=== PATIENT | male | born 1945 | race Caucasian/White ===

== ENCOUNTER 2016-07-18 08:16 | Outpatient (CLI) | payer MEDICARE | END 2016-07-18 08:17 | disposition home or self-care (01) | DX: E78.5 Hyperlipidemia, unspecified (principal); R73.09 Other abnormal glucose; R94.5 Abnormal results of liver function studies; C61 Malignant neoplasm of prostate ==

== ENCOUNTER 2016-08-05 08:28 | Emergency (ER) | payer MEDICARE | END 2016-08-05 09:37 | disposition home or self-care (01) | DX: L02.413 Cutaneous abscess of right upper limb (principal); R03.0 Elevated blood-pressure reading, without diagnosis of hypertension ==

== ENCOUNTER 2017-01-10 08:00 | Outpatient (CLI) | payer MEDICARE ==
[2017-01-10 19:38] LABS: BASOPHILS % (AUTO) 0.8 %; EOSINOPHILS # (AUTO) 0.1 10^3/uL (0.0-0.7); EOSINOPHILS % (AUTO) 2.5 %; HCT - HEMATOCRIT 44.7 % (42.0-52.0); HGB - HEMOGLOBIN 15.1 g/dL (14.0-18.0); LYMPHOCYTES # (AUTO) 2.4 10^3/uL (1.5-3.5); LYMPHOCYTES % (AUTO) 41.4 %; MEAN CORPUSCULAR HEMOGLOBIN 32.4 pg (27.0-31.0); MEAN CORPUSCULAR HGB CONC 33.9 g/dL (32.0-36.0); MEAN CORPUSCULAR VOLUME 95.7 fL (80.0-94.0); MEAN PLATELET VOLUME 10.5 fL (7.4-11.4); MONOCYTES # (AUTO) 0.3 10^3/uL (0.0-1.0); MONOCYTES % (AUTO) 5.6 %; NEUTROPHILS # (AUTO) 2.9 10^3/uL (1.5-6.6); NEUTROPHILS % (AUTO) 49.7 %; NUCLEATED RED BLOOD CELLS AUTO 0.1 /100WBC; RED BLOOD COUNT 4.67 10^6/uL (4.70-6.10); UNCORRECTED WHITE BLOOD COUNT 5.8 x10^3/uL; WHITE BLOOD COUNT 5.8 x10^3/uL (4.8-10.8)
[2017-01-10 19:54] LABS: ALBUMIN/GLOBULIN RATIO 1.2 (1.0-2.2); BILIRUBIN,TOTAL 1.6 mg/dL (0.2-1.0); BUN - BLOOD UREA NITROGEN 17 mg/dL (6-20); CALCIUM 9.5 mg/dL (8.5-10.3); CARBON DIOXIDE - CO2 25 mmol/L (21-32); CHLORIDE 101 mmol/L (101-111); CHOL/HDL RATIO 4.6 (<5.0); CHOLESTEROL 207 mg/dL; CREATININE 0.9 mg/dL (0.6-1.2); GFR - MDRD 84 (>89); GLUCOSE 110 mg/dL (70-100); HDL CHOLESTEROL 45 mg/dL; POTASSIUM 3.9 mmol/L (3.5-5.0); SODIUM 136 mmol/L (135-145); TOTAL PROTEIN 8.3 g/dL (6.7-8.2); TRIGLYCERIDES 131 mg/dL; VLDL CHOLESTEROL 26 mg/dL
[2017-01-10 20:07] LABS: HEMOGLOBIN A1C 0.63 g/dL
== END 2017-01-10 08:01 | disposition home or self-care (01) ==
LOC: LAB.R 08:00
PROVIDERS: ATTEND Physician Assistant Medical
DX: Z85.46 Personal history of malignant neoplasm of prostate (principal); R73.9 Hyperglycemia, unspecified; Z79.899 Other long term (current) drug therapy; I10 Essential (primary) hypertension; G47.33 Obstructive sleep apnea (adult) (pediatric); E78.2 Mixed hyperlipidemia; Z11.59 Encounter for screening for other viral diseases
CPT/HCPCS: 80053; 80061; 83036; 84153; 84443; 85025; 86803

== ENCOUNTER 2017-05-16 15:26 | Outpatient (CLI) | payer MEDICARE | END 2017-05-16 15:27 | disposition home or self-care (01) | LOC: LAB 15:26 | PROVIDERS: ATTEND Urology | DX: R39.15 Urgency of urination (principal); Z85.46 Personal history of malignant neoplasm of prostate; Z90.79 Acquired absence of other genital organ(s) | CPT/HCPCS: 36415; 84153 ==

== ENCOUNTER 2017-09-16 10:28 | Outpatient (CLI) | payer MEDICARE | END 2017-09-16 10:29 | disposition home or self-care (01) | LOC: LAB 10:28 | PROVIDERS: ATTEND Urology | DX: Z85.46 Personal history of malignant neoplasm of prostate (principal) | CPT/HCPCS: 36415; 84153 ==

== ENCOUNTER 2018-01-08 08:08 | Outpatient (CLI) | payer MEDICARE ==
[2018-01-08 13:29] LABS: BASOPHILS # (AUTO) 0.1 10^3/uL (0.0-0.1); BASOPHILS % (AUTO) 1.4 %; EOSINOPHILS # (AUTO) 0.2 10^3/uL (0.0-0.7); EOSINOPHILS % (AUTO) 3.2 %; HGB - HEMOGLOBIN 14.5 g/dL (14.0-18.0); LYMPHOCYTES % (AUTO) 35.7 %; MEAN CORPUSCULAR HEMOGLOBIN 32.7 pg (27.0-31.0); MEAN CORPUSCULAR HGB CONC 34.5 g/dL (32.0-36.0); MEAN CORPUSCULAR VOLUME 94.8 fL (80.0-94.0); MEAN PLATELET VOLUME 10.2 fL (7.4-11.4); MONOCYTES # (AUTO) 0.3 10^3/uL (0.0-1.0); MONOCYTES % (AUTO) 6.1 %; NEUTROPHILS # (AUTO) 3.1 10^3/uL (1.5-6.6); NEUTROPHILS % (AUTO) 53.6 %; PLT - PLATELET COUNT 181 10^3/uL (130-450); RED BLOOD COUNT 4.43 10^6/uL (4.70-6.10); RED CELL DISTRIBUTION WIDTH 13.4 % (12.0-15.0); WHITE BLOOD COUNT 5.7 x10^3/uL (4.8-10.8)
[2018-01-08 13:43] LABS: ALBUMIN 4.3 g/dL (3.2-5.5); ALBUMIN/GLOBULIN RATIO 1.2 (1.0-2.2); ALKALINE PHOSPHATASE 34 IU/L (42-121); ALT ALANINE AMINOTRANSFERASE 36 IU/L (10-60); AST ASPARTATE AMINOTRANSFERASE 27 IU/L (10-42); BILIRUBIN,TOTAL 1.2 mg/dL (0.2-1.0); BUN - BLOOD UREA NITROGEN 15 mg/dL (6-20); CALCIUM 9.3 mg/dL (8.5-10.3); CARBON DIOXIDE - CO2 26 mmol/L (21-32); CHLORIDE 105 mmol/L (101-111); CHOL/HDL RATIO 5.1 (<5.0); CHOLESTEROL 198 mg/dL; CREATININE 0.9 mg/dL (0.6-1.2); GFR - MDRD 83 (>89); GLUCOSE 114 mg/dL (70-100); HDL CHOLESTEROL 39 mg/dL; LDL CHOLESTEROL,CALCULATED 136 mg/dL; LDL/HDL RATIO 3.5 (<3.6); SODIUM 138 mmol/L (135-145); TOTAL PROTEIN 7.8 g/dL (6.7-8.2); VLDL CHOLESTEROL 23 mg/dL
[2018-01-08 13:55] LABS: HB2 TOTAL 15.5 g/dL; HEMOGLOBIN A1C 0.67 g/dL; HEMOGLOBIN A1C % 6.1 % (4.6-6.2)
== END 2018-01-08 08:09 | disposition home or self-care (01) ==
LOC: LAB.R 08:08
PROVIDERS: ATTEND Physician Assistant Medical
DX: R73.9 Hyperglycemia, unspecified (principal); E78.2 Mixed hyperlipidemia; I10 Essential (primary) hypertension; Z85.46 Personal history of malignant neoplasm of prostate; Z79.899 Other long term (current) drug therapy; Z12.5 Encounter for screening for malignant neoplasm of prostate
CPT/HCPCS: 80053; 80061; 83036; 85025; G0103; 83721; 84153

== ENCOUNTER 2018-03-04 10:41 | Outpatient (CLI) | payer MEDICARE | END 2018-03-04 10:42 | disposition home or self-care (01) | LOC: SC 10:41 | PROVIDERS: ATTEND Nurse Practitioner Family | DX: G47.33 Obstructive sleep apnea (adult) (pediatric) (principal); R53.83 Other fatigue | CPT/HCPCS: 99214; G0463; 99212 ==

== ENCOUNTER 2018-04-23 12:14 | Outpatient (CLI) | payer MEDICARE | END 2018-04-23 12:15 | disposition home or self-care (01) | LOC: LAB 12:14 | PROVIDERS: ATTEND Urology | DX: Z85.46 Personal history of malignant neoplasm of prostate (principal) | CPT/HCPCS: 36415; 84153 ==

== ENCOUNTER 2018-04-28 08:10 | Outpatient (CLI) | payer MEDICARE ==
[2018-04-28 16:51] LABS: CHOL/HDL RATIO 6.3 (<5.0); CHOLESTEROL 222 mg/dL; HDL CHOLESTEROL 35 mg/dL; LDL CHOLESTEROL,CALCULATED 151 mg/dL; LDL/HDL RATIO 4.3 (<3.6); VLDL CHOLESTEROL 36 mg/dL
== END 2018-04-28 08:11 | disposition home or self-care (01) ==
LOC: LAB.R 08:10
PROVIDERS: ATTEND Physician Assistant Medical
DX: Z79.899 Other long term (current) drug therapy (principal); E78.2 Mixed hyperlipidemia
CPT/HCPCS: 80061; 83721

== ENCOUNTER 2018-06-19 08:00 | Outpatient (CLI) | payer MEDICARE ==
[2018-06-19 14:02] LABS: ALT ALANINE AMINOTRANSFERASE 44 IU/L (10-60); AST ASPARTATE AMINOTRANSFERASE 31 IU/L (10-42); LDL CHOLESTEROL,DIRECT 55 mg/dL
== END 2018-06-19 23:59 | disposition home or self-care (01) ==
LOC: LAB.R 08:00
PROVIDERS: ATTEND Physician Assistant Medical
DX: E78.2 Mixed hyperlipidemia (principal); Z79.899 Other long term (current) drug therapy
CPT/HCPCS: 83721; 84450; 84460

== ENCOUNTER 2018-11-05 11:03 | Outpatient (CLI) | payer MEDICARE | END 2018-11-05 11:04 | disposition home or self-care (01) | LOC: LAB 11:03 | PROVIDERS: ATTEND Urology | DX: Z85.46 Personal history of malignant neoplasm of prostate (principal) | CPT/HCPCS: 36415; 84153 ==

== ENCOUNTER 2019-01-19 09:03 | Outpatient (CLI) | payer MEDICARE ==
[2019-01-19 09:46] LABS: BASOPHILS # (AUTO) 0.1 10^3/uL (0.0-0.1); BASOPHILS % (AUTO) 0.8 %; EOSINOPHILS # (AUTO) 0.2 10^3/uL (0.0-0.7); EOSINOPHILS % (AUTO) 2.8 %; HGB - HEMOGLOBIN 14.2 g/dL (14.0-18.0); LYMPHOCYTES # (AUTO) 1.9 10^3/uL (1.5-3.5); LYMPHOCYTES % (AUTO) 31.6 %; MEAN CORPUSCULAR HEMOGLOBIN 32.1 pg (27.0-31.0); MEAN CORPUSCULAR HGB CONC 33.3 g/dL (32.0-36.0); MEAN CORPUSCULAR VOLUME 96.4 fL (80.0-94.0); MEAN PLATELET VOLUME 11.1 fL (7.4-11.4); MONOCYTES # (AUTO) 0.5 10^3/uL (0.0-1.0); MONOCYTES % (AUTO) 7.9 %; NEUTROPHILS # (AUTO) 3.4 10^3/uL (1.5-6.6); NEUTROPHILS % (AUTO) 56.6 %; PLT - PLATELET COUNT 193 10^3/uL (130-450); RED BLOOD COUNT 4.43 10^6/uL (4.70-6.10); WHITE BLOOD COUNT 6.1 x10^3/uL (4.8-10.8)
[2019-01-19 10:06] LABS: ALBUMIN 4.4 g/dL (3.2-5.5); ALKALINE PHOSPHATASE 68 IU/L (42-121); ALT ALANINE AMINOTRANSFERASE 37 IU/L (10-60); AST ASPARTATE AMINOTRANSFERASE 42 IU/L (10-42); BILIRUBIN,TOTAL 1.8 mg/dL (0.2-1.0); BUN - BLOOD UREA NITROGEN 17 mg/dL (6-20); CALCIUM 9.2 mg/dL (8.5-10.3); CARBON DIOXIDE - CO2 26 mmol/L (21-32); CHLORIDE 103 mmol/L (101-111); CHOLESTEROL 108 mg/dL; CREATININE 0.9 mg/dL (0.6-1.2); GFR - MDRD 83 (>89); GLUCOSE 120 mg/dL (70-100); HDL CHOLESTEROL 36 mg/dL; LDL CHOLESTEROL,CALCULATED 57 mg/dL; LDL/HDL RATIO 1.6 (<3.6); SODIUM 137 mmol/L (135-145); TOTAL PROTEIN 8.7 g/dL (6.7-8.2); VLDL CHOLESTEROL 15 mg/dL
== END 2019-01-19 09:04 | disposition home or self-care (01) ==
LOC: LAB 09:03
PROVIDERS: ATTEND Family Medicine
DX: E78.2 Mixed hyperlipidemia (principal); Z12.5 Encounter for screening for malignant neoplasm of prostate
CPT/HCPCS: 36415; 80053; 80061; 85025; G0103; 83721; 84153

== ENCOUNTER 2019-06-01 11:15 | Outpatient (CLI) | payer MEDICARE ==
[2019-06-01 12:27] VITALS: BP 120/70
--- NOTE | 2019-06-01 12:27 | SLEEP CARE CONSULTATION ---
Information from patient questionnaire entered by Mishel Gomes. I have reviewed and concur with the information entered by Mishel Gomes. This document represents the service I personally performed and the decisions made by me, Mihaela Hager, RN, MSN, [employer]ER OPERATOR. History of Present Illness Previous diagnosis: Moderate, Obstructive Sleep Apnea-Hypopnea Syndrome AHI: 22.3 Reason for follow up: annual Equipment type: CPAP Equipment obtained from: [employer] (lost contact number) Mask style: Nasal (Dreamwear) Mask brand: Respironics Backup mask available: Yes (old mask ) Last cushion change: 3 months ago Prior sleep studies: Yes Year and Where: 2010 [facility] CPAP Compliance Data - Data Reviewed with Patient Average duration of nightly device use: 7h 59m Compliance rate %: 99 Current pressure setting (cmH2O): 7-9 Humidity setting: auto Heated hose setting: auto Central apnea: 0.7 Average large leak: 0 Subjective Missed days of use due to: reports: travel (forgot his CPAP) Patient concerns: reports: mask discomfort (dislodging in sleep 1-2 times a night), mask leak noise, other (general seal problems and whistling / ). denies: aerophagia, air blowing in eyes, condensation in mask/hose, nasal congestion, dry mouth, nose, throat, epistaxis Observed to snore while using device: Yes (when supine) Current pressure setting perceived as: comfortable On therapy, patient: reports: sleeping better, awakening more refreshed, being more awake and alert during the day, more rested overall. denies: drowsiness while driving Initial Blanchard Sleepiness Scale score: 5 Current Blanchard Sleepiness Scale score: 9 Allergies and Home Medications Home medication list reviewed: Yes (no change in medication) Allergy and home medication list: Gabapentin 300mg one 2-4 times daily Vitamin D3 5000 units daily Review of Systems Review of systems same as previous: No (skin cancer new to nose to be removed. ) Physical Exam Blood Pressure: 120/70 Cuff size: long Heart Rate: 65 O2 Saturation: 97 Height: 6 ft 3 in Weight: 263 lb 6.4 oz Weight change since last visit: lost 1 pounds Body Mass Index: 32.9 BMI Classification: Obesity Class 1 Impression and Plan 1. Obstructive Sleep Apnea-Hypopnea Syndrome, moderate, with good treatment compliance and good apnea control. On CPAP therapy, the patient has better sleep quality and is more rested overall. To reduce air hunger while sleeping supine, I will increase his autoCPAP to [id number]. He is to contact me if the pressure is insufficient or uncomfortable. To prevent mask dislodging , an adaptor will be ordered for headgear. To reduce warmth of air, I showed patient how to adjust the heated hose and humidity as well if needed. Printed instructions given with rossye written for changing settings. Mask leaks can be reduced by washing mask daily and changing mask cushions more frequently to improve mask seal and comfort. Cushions also need to be changed more frequently for better seal as it will lose form with use. Additionally, mask whistling can be reduced by changing body of mask every 3 months. Supply replacement list also given as well as reference sheet for cleaning. Patient has lost weight. Currently patients BMI is 32.5 obesity class . Obesity increases the risk of apnea, CPAP pressure req uirements and overall health risks especially cardiovascular and diabetes. Thus patient is advised to lose weight. However, patient is not currently interested. Weight loss can be done with reducing portion size, refined foods and balancing content with vegetables, fruit and protein. A diet consultation can be helpful in achieving optimal weight loss goals. The BMI chart was reviewed. Patient enc ouraged to discuss their weight goals with their PCP. Patient's apnea severity and rationale for treatment to reduce apnea, improve sleep quality and reduce cardiovascular and cerebrovascular events was reviewed. Since his apnea is more severe supine, he is advised to avoid supine sleep if unable to use CPAP. * * Change CPAP pressure to 9-11 cmH2O * headgear adaptor * update supplies * Implement methods to reduce air warmth and mask leaks * Notify me if snoring with mask or feeling that the pressure is too much or too little * Attempt to lose weight * Call this office if any problems using CPAP * Return for follow up in 1 year , or sooner if concerns arise I spent 100% of this visit face to face with the patient with greater than 50% of this was spent time counseling the patient and coordination of care.
== END 2019-06-01 11:16 | disposition home or self-care (01) ==
LOC: SC 11:15
PROVIDERS: ATTEND Nurse Practitioner Family
DX: G47.33 Obstructive sleep apnea (adult) (pediatric) (principal); E66.9 Obesity, unspecified; Z68.32 Body mass index [BMI] 32.0-32.9, adult
CPT/HCPCS: 99214; G0463; 99212

== ENCOUNTER 2020-01-21 08:11 | Outpatient (CLI) | payer MEDICARE ==
[2020-01-21 08:29] LABS: BASOPHILS # (AUTO) 0.1 10^3/uL (0.0-0.1); EOSINOPHILS # (AUTO) 0.1 10^3/uL (0.0-0.7); HGB - HEMOGLOBIN 14.5 g/dL (14.0-18.0); LYMPHOCYTES # (AUTO) 2.1 10^3/uL (1.5-3.5); LYMPHOCYTES % (AUTO) 34.7 %; MEAN CORPUSCULAR HEMOGLOBIN 31.9 pg (27.0-31.0); MEAN CORPUSCULAR HGB CONC 33.1 g/dL (32.0-36.0); MEAN CORPUSCULAR VOLUME 96.3 fL (80.0-94.0); MEAN PLATELET VOLUME 10.6 fL (7.4-11.4); MONOCYTES # (AUTO) 0.5 10^3/uL (0.0-1.0); NEUTROPHILS # (AUTO) 3.3 10^3/uL (1.5-6.6); PLT - PLATELET COUNT 185 10^3/uL (130-450); RED BLOOD COUNT 4.55 10^6/uL (4.70-6.10); RED CELL DISTRIBUTION WIDTH 12.6 % (12.0-15.0); WHITE BLOOD COUNT 6.1 x10^3/uL (4.8-10.8)
[2020-01-21 09:07] LABS: ALBUMIN 4.5 g/dL (3.2-5.5); ALBUMIN/GLOBULIN RATIO 1.2 (1.0-2.2); ALKALINE PHOSPHATASE 50 IU/L (42-121); ALT ALANINE AMINOTRANSFERASE 37 IU/L (10-60); AST ASPARTATE AMINOTRANSFERASE 32 IU/L (10-42); BILIRUBIN,TOTAL 2.6 mg/dL (0.2-1.0); BUN - BLOOD UREA NITROGEN 16 mg/dL (6-20); CALCIUM 9.5 mg/dL (8.5-10.3); CARBON DIOXIDE - CO2 26 mmol/L (21-32); CHLORIDE 100 mmol/L (101-111); CHOL/HDL RATIO 3.5 (<5.0); CHOLESTEROL 130 mg/dL; GLUCOSE 123 mg/dL (70-100); HDL CHOLESTEROL 37 mg/dL; LDL CHOLESTEROL,CALCULATED 72 mg/dL; LDL/HDL RATIO 1.9 (<3.6); SODIUM 138 mmol/L (135-145); TOTAL PROTEIN 8.3 g/dL (6.7-8.2); VLDL CHOLESTEROL 21 mg/dL
[2020-01-21 14:57] LABS: PSA FREE < 0.005 ng/mL (0.16-2.81)
== END 2020-01-21 08:12 | disposition home or self-care (01) ==
LOC: LAB 08:11
PROVIDERS: ATTEND Family Medicine
DX: E78.5 Hyperlipidemia, unspecified (principal); Z85.46 Personal history of malignant neoplasm of prostate
CPT/HCPCS: 36415; 80053; 80061; 83721; 84153; 84154; 85025

== ENCOUNTER 2020-01-27 08:00 | Outpatient (CLI) | payer MEDICARE ==
[2020-01-27 18:53] LABS: INR 1.2 (0.8-1.2)
[2020-01-27 19:11] LABS: PARTIAL THROMBOPLASTIN TIME 26.5 secs (24.9-33.3)
[2020-01-28 11:53] LABS: BILIRUBIN,DIRECT 0.3 mg/dL (0.1-0.5); BILIRUBIN,TOTAL 2.3 mg/dL (0.2-1.0)
[2020-01-28 13:11] LABS: HEPATITIS B SURFACE ANTIGEN NON-REACTIVE (NON-REACTIVE); HEPATITIS C ANTIBODY NON-REACTIVE (NON-REACTIVE)
== END 2020-01-27 23:59 | disposition home or self-care (01) ==
LOC: LAB.WCP 08:00
PROVIDERS: ATTEND Family Medicine
DX: E80.6 Other disorders of bilirubin metabolism (principal)
CPT/HCPCS: 36415; 82247; 82248; 85610; 85730; 86317; 86704; 86803; 87340

== ENCOUNTER 2020-03-11 10:19 | Emergency (ER) | payer MEDICARE ==
--- NOTE | 2020-03-11 11:32 | ED Physician Documentation ---
PD HPI URI - Stated complaint Stated Complaint: FEVER - Chief complaint Chief Complaint: Fever - History obtained from History obtained from: Patient - History of Present Illness Timing - onset: How many days ago (has had lump in left posterior axilla for few weeks and noted it getting larger. More painful and swollen the past few days. Seen by [employer] yesterday and had punch biopsy of it. Having more pain today. Fevers last night without cough nor URI symptoms.) Timing details: Gradual onset, Still present (worse for several days) Associated symptoms: Fever (last night and today), Other (skin lesion left posterior axilla only). No: Sore throat, Dry cough, Productive cough, NVD Similar symptoms before: Has not had sx before Recently seen: Clinic ([employer] yesterday) Review of Systems Constitutional: reports: Fever, Chills Nose: denies: Rhinorrhea / runny nose, Congestion Throat: denies: Sore throat Respiratory: denies: Cough GI: denies: Nausea, Vomiting, Diarrhea : denies: Dysuria PD PAST MEDICAL HISTORY - Past Medical History Past Medical History: Yes Cardiovascular: None Respiratory: CPAP use Endocrine/Autoimmune: None GI: None : None HEENT: None Psych: None Musculoskeletal: None Derm: Other - Past Surgical History Past Surgical History: No General: Hiatal hernia repair HEENT: Cataracts - Present Medications Home Medications: Ambulatory Orders Medication Instructions Recorded Confirmed Gabapentin [Neurontin] 300 mg PO TID 02/14/16 02/14/16 Sulfamethoxazole/Trimethoprim 1 each PO BID #14 tablet 08/05/16 [Sulfamethoxazole-Tmp Ds Tablet] Mupirocin Calcium [Mupirocin] 1 applic TP TID #15 cream..g. 03/11/20 Sulfamethox/Trimeth 800/160 1 each PO BID #14 tablet 03/11/20 [Bactrim Ds 800/160] - Allergies Allergies/Adverse Reactions: Allergies Allergy/AdvReac Type Severity Reaction Status Date / Time No Known Drug Allergies Allergy Verified 03/11/20 10:35 - Social History Does the pt smoke?: No Smoking Status: Never smoker Does the pt drink ETOH?: No Does the pt have substance abuse?: No - Immunizations Immunizations are current?: Yes - POLST Patient has POLST: No PD ED PE NORMAL - Vitals Vital signs reviewed: Yes - General General: Alert and oriented X 3, No acute distress, Well developed/nourished - HEENT HEENT: Ears normal, Moist mucous membranes, Pharynx benign - Neck Neck: Supple, no meningeal sign, No adenopathy - Cardiac Cardiac: RRR, No murmur - Respiratory Respiratory: Clear bilaterally - Abdomen Abdomen: Soft, Non tender - Back Back: No CVA TTP - Derm Derm: Normal color, Warm and dry, Other (left posterior axillary area with firm rounded area under skin without skin lesions per se. It is about 4-5 cm di ameter, with some redness and warmth of skin overlying. There is small 1 cm sutured skin laceration from recent biopsy at edge of firm area. There is tenting of the skin adjacent to that.) Results - Vitals Vitals: Oxygen O2 Source Room air - Labs Labs: Microbiology 03/11/20 12:13 Wound Culture - Preliminary Arm - Left Procedures - Abscess I&D (location) left axilla posteriorly Preparation: Confirmed with ultrasound, Chlorhexadine, Lidocaine 1%, With epi Incision: Incised with scalpel, Purulent drainage, Loculations broken, Irrigated, Packed, Culture obtained Other: Pt tolerated well, Dressing applied, Antibiotic prescribed PD MEDICAL DECISION MAKING - ED course Complexity details: considered differential (generous amount of purulent drainage with I&D and deflated much of the firm area. Still much induration around it, likely was sebaceous cyst that grew and got infected. Interesting the punch biopsy or such from Derm just missed the cavity of the abscess.), d/w patient Departure - Departure Disposition: 01 Home, Self Care Clinical Impression: Abscess of arm, left Condition: Stable Record reviewed to determine appropriate education?: Yes Instructions: ED Abscess IandD Follow-Up: Bubba Klein MD [Primary Care Provider] - Prescriptions: Sulfamethox/Trimeth 800/160 [Bactrim Ds 800/160] 1 each PO BID #14 tablet Mupirocin Calcium [Mupirocin] 1 applic TP TID #15 cream..g. Comments: Warm moist compresses or soaks to the area periodically to promote blood flow and increased drainage. Leave the packing/wick in there for 1 or 2 days. Eit her remove yourself or follow-up back with us in 2 days. Bactrim antibiotic twice daily for a week for presumed staph infection. The culture will result in 2 days to better confirm and see if we need to change antibiotics. Tylenol or ibuprofen as needed for pains. Should be feeling better with the pressure out with the drainage. Mupirocin topical antibiotic to the area twice daily. Dressing changed twice daily initially to clear out any drainage. Recheck if not improving well over the next couple of days and sooner if you have worsening general wellness, for fevers persisting, nausea, increased redness or other concerns. Follow up with Dermatology after your return for more definitive care/excision of the underlying cyst or such. Discharge Date/Time: 03/11/20 12:38
[2020-03-11] MEDS ORDERED: SULFAMETH/TRIMETH DS 800/160 MG TABLET PO STA (12:14)
[2020-03-11 12:39] VITALS: BP 110/69
== END 2020-03-11 12:38 | disposition home or self-care (01) ==
LOC: ED 10:19
DX: L02.412 Cutaneous abscess of left axilla (principal)
CPT/HCPCS: 10061; 87070; 87205; 99283; 99284; A9270

== ENCOUNTER 2020-03-13 13:23 | Emergency (ER) | payer MEDICARE ==
[2020-03-13] MEDS ORDERED: BUFFERED LIDOCAINE 10 ML SYRINGE SUBQ STA (13:38)
--- NOTE | 2020-03-13 13:38 | ED Physician Documentation ---
History of Present Illness - Stated complaint Stated Complaint: DRAIN REMOVAL - Chief complaint Chief Complaint: General - History obtained from History obtained from: Patient - Additonal information Additional information: 74-year-old gentleman returns as directed for packing removal. 2 days ago he had a sebaceous cyst incised and drained, its basically on the back of the left arm. Culture grew what looks like probably skin dakota. Review of Systems Ten Systems: 10 systems reviewed and negative Constitutional: reports: Reviewed and negative Nose: reports: Reviewed and negative Throat: reports: Reviewed and negative Cardiac: reports: Reviewed and negative Respiratory: reports: Reviewed and negative PD PAST MEDICAL HISTORY - Past Medical History Cardiovascular: None Respiratory: CPAP use Endocrine/Autoimmune: None GI: None : None HEENT: None Psych: None Musculoskeletal: None Derm: Other - Past Surgical History Past Surgical History: No General: Hiatal hernia repair HEENT: Cataracts - Present Medications Home Medications: Ambulatory Orders Medication Instructions Recorded Confirmed Gabapentin [Neurontin] 300 mg PO TID 02/14/16 02/14/16 Sulfamethoxazole/Trimethoprim 1 each PO BID #14 tablet 08/05/16 [Sulfamethoxazole-Tmp Ds Tablet] Mupirocin Calcium [Mupirocin] 1 applic TP TID #15 cream..g. 03/11/20 Sulfamethox/Trimeth 800/160 1 each PO BID #14 tablet 03/11/20 [Bactrim Ds 800/160] - Allergies Allergies/Adverse Reactions: Allergies Allergy/AdvReac Type Severity Reaction Status Date / Time No Known Drug Allergies Allergy Verified 03/13/20 13:33 - Social History Does the pt smoke?: No Smoking Status: Never smoker Does the pt drink ETOH?: No Does the pt have substance abuse?: No - Immunizations Immunizations are current?: Yes - POLST Patient has POLST: No PD ED PE NORMAL - Vitals Vital signs reviewed: Yes - General General: Alert and oriented X 3, No acute distress - Extremities Extremities: Other (He has a sebaceous cyst measuring about 4 cm in diameter with quarter inch packing in place and a stab incision. On removal of the packing there is still significant fluctuance and drainage.) - Neuro Neuro: Alert and oriented X 3, Normal speech Results - Vitals Vitals: Vital Signs - 24 hr 03/13/20 13:28 Temperature 36.9 C Heart Rate 66 Respiratory 18 Rate Blood Pressure 132/71 H O2 Saturation 100 Oxygen O2 Source Room air Procedures - Abscess I&D (location) L shoulder Preparation: Chlorhexadine, Lidocaine 1% Incision: Incised with scalpel, Purulent drainage, Loculations broken, Packed. No: Culture obtained Other: Pt tolerated well PD MEDICAL DECISION MAKING - ED course ED course: 74-year-old gentleman with incompletely drained sebaceous cyst, repeat I&D was done and got out a significant amount of purulent and sebaceous material and it was repacked with quarter inch packing Departure - Departure Disposition: 01 Home, Self Care Clinical Impression: Sebaceous cyst of left axilla Condition: Good Record reviewed to determine appropriate education?: Yes Instructions: ED Cyst Sebaceous Infec IandD Comments: Continue current antibiotics, return in 2 days or see your exhibitor sales in 2 days for recheck and packing removal. Sooner if worse.
[2020-03-13 14:15] VITALS: BP 106/72
== END 2020-03-13 14:26 | disposition home or self-care (01) ==
LOC: ED 13:23
DX: L72.3 Sebaceous cyst (principal)
CPT/HCPCS: 10061

== ENCOUNTER 2020-03-15 13:40 | Emergency (ER) | payer MEDICARE ==
--- NOTE | 2020-03-15 13:44 | ED Physician Documentation ---
PD HPI WOUND RECHECK - Stated complaint Stated Complaint: LT/ARM/ABCESS FU - Histroy obtained from History obtained from: Patient - History of Present Illness Location: Left Uppper Extremity (posterior axillary area.) Recently seen: Emergency Dept (3 days ago and 2 days ago, for I&D and then repacking of abscess. Culture showing mixed skin dakota though wound draining demetri purulent material. He states improving on the abx and with drainage.) Review of Systems Constitutional: denies: Fever, Chills, Myalgias GI: denies: Nausea, Vomiting Neurologic: denies: Focal weakness, Numbness PD PAST MEDICAL HISTORY - Past Medical History Cardiovascular: None Respiratory: CPAP use Endocrine/Autoimmune: None GI: None : None HEENT: None Psych: None Musculoskeletal: None Derm: Other - Past Surgical History Past Surgical History: No General: Hiatal hernia repair HEENT: Cataracts - Present Medications Home Medications: Ambulatory Orders Medication Instructions Recorded Confirmed Gabapentin [Neurontin] 300 mg PO TID 02/14/16 02/14/16 Sulfamethoxazole/Trimethoprim 1 each PO BID #14 tablet 08/05/16 [Sulfamethoxazole-Tmp Ds Tablet] Mupirocin Calcium [Mupirocin] 1 applic TP TID #15 cream..g. 03/11/20 Sulfamethox/Trimeth 800/160 1 each PO BID #14 tablet 03/11/20 [Bactrim Ds 800/160] - Allergies Allergies/Adverse Reactions: Allergies Allergy/AdvReac Type Severity Reaction Status Date / Time No Known Drug Allergies Allergy Verified 03/15/20 13:45 - Social History Does the pt smoke?: No Smoking Status: Never smoker Does the pt drink ETOH?: No Does the pt have substance abuse?: No - Immunizations Immunizations are current?: Yes - POLST Patient has POLST: No PD ED PE NORMAL - Vitals Vital signs reviewed: Yes - General General: Alert and oriented X 3, No acute distress, Well developed/nourished - Derm Derm: Normal color, Warm and dry - Extremities Extremities: Other (left posterior axillary area with area of firmness and mild redness, much decreased in size from original I&D. Packing in place which is purulent. Removed easily and the cavity had then minimal residual drainage (couple drops purulent). I think it can go without repacking. ) Results - Vitals Vitals: Vital Signs - 24 hr 03/15/20 13:45 Temperature 36.5 C Heart Rate 60 Respiratory 16 Rate Blood Pressure 152/89 H O2 Saturation 97 Oxygen O2 Source Room air PD MEDICAL DECISION MAKING - ED course Complexity details: reviewed old records, reviewed results, considered differential, d/w patient Departure - Departure Disposition: 01 Home, Self Care Clinical Impression: Encounter for recheck of abscess following incision and drainage Condition: Stable Follow-Up: Bubba Klein MD [Primary Care Provider] - Comments: Continue with warm compresses or soaks to the area once or twice daily. Finish out your antibiotics. Recheck if not looking well at the end of your antibiotic s with any persistent redness or drainage. Discharge Date/Time: 03/15/20 14:07
[2020-03-15 13:49] VITALS: BP 152/89
== END 2020-03-15 14:07 | disposition home or self-care (01) ==
LOC: ED 13:40
DX: L02.412 Cutaneous abscess of left axilla (principal)
CPT/HCPCS: 99281

== ENCOUNTER 2020-04-05 15:00 | Outpatient (CLI) | payer MEDICARE | END 2020-04-05 23:59 | disposition home or self-care (01) | LOC: LAB.R 15:00 | PROVIDERS: ATTEND Physician Assistant Medical | DX: L02.91 Cutaneous abscess, unspecified (principal) | CPT/HCPCS: 87070; 87205 ==

== ENCOUNTER 2020-04-07 11:40 | Outpatient (CLI) | payer MEDICARE | END 2020-04-07 23:59 | disposition home or self-care (01) | LOC: LAB.R 11:40 | PROVIDERS: ATTEND Physician Assistant Medical | DX: R19.7 Diarrhea, unspecified (principal) | CPT/HCPCS: 87493 ==

== ENCOUNTER 2020-06-02 15:43 | Outpatient (CLI) | payer MEDICARE ==
--- NOTE | 2020-06-02 16:16 | SLEEP CARE CONSULTATION ---
Information from patient questionnaire entered by Ivet Phan. I have reviewed and concur with the information entered by Ivet Phan. This document represents the service I personally performed and the decisions made by me, Cristal Fitzgerald ARNP. History of Present Illness Service Date and Time: 06/02/2020 1543 Previous diagnosis: Moderate, Obstructive Sleep Apnea-Hypopnea Syndrome AHI: 22.3 Reason for follow up: annual (Last seen 05/2019) Equipment type: CPAP Equipment obtained from: [employer] (getting supplies as needed) Mask style: Full face Backup mask available: Yes (old mask) Last cushion change: 3 months Prior sleep studies: Yes Year and Where: 2010 [facility] additional information: NIKA TONG JR was diagnosed to have moderate, AHI 22.3, obstructive sleep apnea-hypopnea syndrome and returned today for CPAP therapy annual follow-up. Sleep Study - Results Prior sleep studies: Yes Year and Where: 2010 [facility] CPAP Compliance Data - Data Reviewed with Patient Average duration of nightly device use: 7 h 52 min Compliance rate %: 99 Current pressure setting (cmH2O): 7-9 Average residual AHI: 2.2 Central apnea: 0.3 Obstructive apnea: 0.5 Subjective Patient concerns: reports: mask leak noise (just with positioning, adjustment helps), dry mouth, nose, throat, other (Headache). denies: aerophagia, mask discomfort, air blowing in eyes, condensation in mask/hose, nasal congestion, epistaxis Observed to snore while using device: No Current pressure setting perceived as: too low (just at onset of night; okay once it increases to 7-9 cmH2O) On therapy, patient: reports: sleeping better, awakening more refreshed, being more awake and alert during the day, more rested overall. denies: drowsiness while driving Initial Jordan Sleepiness Scale score: 5 (in 2014) Current Jordan Sleepiness Scale score: 8 Allergies and Home Medications Drug allergies reviewed: Yes (NKDA) Home medication list reviewed: Yes (atorvastatin) Review of Systems Review of systems same as previous: Yes (no changes) Physical Exam Heart Rate: 57 O2 Saturation: 98 Height: 6 ft 3 in Weight: 253 lb Weight change since last visit: 10 lbs Body Mass Index: 31.6 BMI Classification: Obese Impression and Plan 1. Obstructive Sleep Apnea-Hypopnea Syndrome, moderate, with excellent treatment compliance and good apnea control. On CPAP therapy, the patient has better sleep quality and is more rested overall. He has had some mouth dryness but when he increases the humidity setting he gets condensation in the hose. Oral dryness can be reduced by adjusting humidity setting higher or heated hose lower or by adjusting both settings. Verbal instructions given on how to change humidity and heated hose settings with rationale explaining why to change. He also states that he feels like the pressure is not enough at the onset of the night when he turns on the machine. Once it is on for a few minutes, this resolves. I will increase his startup pressure to reduce initial air hunger at onset of therapy. He was encouraged to let me know if the pressure feels too much or uncomfortable and we can do further adjustments. He voiced understanding. He has lost 10 pounds since last visit and was encouraged to continue measures to get to a healthy weight. Patient's apnea severity and rationale for treatment to reduce apnea, improve sleep quality and reduce cardiovascular and cerebrovascular events was reviewed. * Continue autoCPAP pressure at 7-9 cmH2O * Changed startup pressure to 7 cmH2O * Notify me if snoring with mask or feeling that the pressure is too much or too little * Continue to try to lose weight * Call this office if any problems using CPAP * Return for follow up in 1 year, or sooner if concerns arise Counseling Topics: Spare mask, Weight loss health impact Visit Type: In Office Time Spent with Patient (minutes): 21 Provider Statement: I spent 100% of the Face to Face Visit with the patient with greater than 50% spent counseling the patient and coordination of care.
== END 2020-06-02 15:44 | disposition home or self-care (01) ==
LOC: SC 15:43
PROVIDERS: ATTEND Nurse Practitioner Family
DX: G47.33 Obstructive sleep apnea (adult) (pediatric) (principal); E66.9 Obesity, unspecified; Z68.31 Body mass index [BMI] 31.0-31.9, adult
CPT/HCPCS: 99213; G0463; 99212

== ENCOUNTER 2021-03-31 08:34 | Outpatient (CLI) | payer MEDICARE ==
[2021-03-31 08:55] LABS: BASOPHILS # (AUTO) 0.1 10^3/uL (0.0-0.1); BASOPHILS % (AUTO) 0.9 %; EOSINOPHILS # (AUTO) 0.2 10^3/uL (0.0-0.7); EOSINOPHILS % (AUTO) 2.3 %; HCT - HEMATOCRIT 44.2 % (42.0-52.0); HGB - HEMOGLOBIN 14.8 g/dL (14.0-18.0); LYMPHOCYTES # (AUTO) 2.2 10^3/uL (1.5-3.5); LYMPHOCYTES % (AUTO) 31.4 %; MEAN CORPUSCULAR HEMOGLOBIN 32.4 pg (27.0-31.0); MEAN CORPUSCULAR HGB CONC 33.5 g/dL (32.0-36.0); MEAN CORPUSCULAR VOLUME 96.7 fL (80.0-94.0); MONOCYTES # (AUTO) 0.5 10^3/uL (0.0-1.0); MONOCYTES % (AUTO) 7.7 %; NEUTROPHILS % (AUTO) 57.4 %; PLT - PLATELET COUNT 184 10^3/uL (130-450); RED BLOOD COUNT 4.57 10^6/uL (4.70-6.10); RED CELL DISTRIBUTION WIDTH 12.8 % (12.0-15.0); WHITE BLOOD COUNT 6.9 x10^3/uL (4.8-10.8)
[2021-03-31 09:15] LABS: ALBUMIN 4.5 g/dL (3.2-5.5); ALBUMIN/GLOBULIN RATIO 1.1 (1.0-2.2); ALKALINE PHOSPHATASE 48 IU/L (42-121); ALT ALANINE AMINOTRANSFERASE 48 IU/L (10-60); AST ASPARTATE AMINOTRANSFERASE 42 IU/L (10-42); BUN - BLOOD UREA NITROGEN 15 mg/dL (6-20); CALCIUM 10.1 mg/dL (8.5-10.3); CARBON DIOXIDE - CO2 28 mmol/L (21-32); CHLORIDE 99 mmol/L (101-111); CHOL/HDL RATIO 3.4 (<5.0); CHOLESTEROL 134 mg/dL; CREATININE 0.9 mg/dL (0.6-1.2); GFR - MDRD 83 (>89); GLUCOSE 129 mg/dL (70-100); HDL CHOLESTEROL 39 mg/dL; LDL CHOLESTEROL,CALCULATED 75 mg/dL; LDL/HDL RATIO 1.9 (<3.6); POTASSIUM 4.4 mmol/L (3.5-5.0); SODIUM 135 mmol/L (135-145); TOTAL PROTEIN 8.7 g/dL (6.7-8.2); TRIGLYCERIDES 98 mg/dL; VLDL CHOLESTEROL 20 mg/dL
[2021-03-31 09:26] LABS: THYROID STIMULATING HORMONE 10.65 uIU/mL (0.34-5.60)
[2021-03-31 10:24] LABS: FREE T4 (FREE THYROXINE) 0.55 ng/dL (0.58-1.64)
[2021-03-31 13:41] LABS: ESTIMATED AVERAGE GLUCOSE 126 mg/dL (70-100)
== END 2021-03-31 08:35 | disposition home or self-care (01) ==
LOC: LAB 08:34
PROVIDERS: ATTEND Family Medicine
DX: B02.29 Other postherpetic nervous system involvement (principal); E80.6 Other disorders of bilirubin metabolism; R73.02 Impaired glucose tolerance (oral); E78.2 Mixed hyperlipidemia; M15.9 Polyosteoarthritis, unspecified
CPT/HCPCS: 36415; 80053; 80061; 83036; 83721; 84153; 84439; 84443; 85025

== ENCOUNTER 2021-04-06 08:00 | Outpatient (CLI) | payer MEDICARE ==
[2021-04-06 13:04] LABS: THYROID STIMULATING HORMONE 9.03 uIU/mL (0.34-5.60)
[2021-04-06 13:06] LABS: FREE T3 3.01 pg/mL (2.5-3.9); FREE T4 (FREE THYROXINE) 0.49 ng/dL (0.58-1.64)
== END 2021-04-06 23:59 | disposition home or self-care (01) ==
LOC: LAB.WCP 08:00
PROVIDERS: ATTEND Family Medicine
DX: E03.9 Hypothyroidism, unspecified (principal)
CPT/HCPCS: 36415; 84439; 84443; 84481

== ENCOUNTER 2021-09-15 06:59 | Day surgery (SDC) | payer MEDICARE ==
[2021-09-15] MEDS ORDERED: LACTATED RINGERS 1,000 ML IV ONE ×2 (07:19→09:12)
[2021-09-15] MEDS ORDERED: PROPOFOL 500 MG/50 ML 500 MG/50 ML VIAL ONE (07:43)
--- NOTE | 2021-09-15 07:47 | ANESTHESIA ---
Pre-Anesthesia VS, & Labs - Diagnosis hx of colon polyps - Procedure colonoscopy Vital Signs: Temp Pulse Resp BP Pulse Ox 37.1 C 68 16 143/75 H 94 09/15/21 07:05 09/15/21 07:05 09/15/21 07:05 09/15/21 07:05 09/15/21 07:05 Height: 6 ft 3 in Weight (kg): 119 kg Body Mass Index: 32.8 BMI Classification: Obese - NPO >8 hours - Lab Results Lab results reviewed: Yes Home Medications and Allergies Home Medications: Ambulatory Orders Atorvastatin [Lipitor] 20 mg DAILY 09/14/21 Levothyroxine [Synthroid] 25 mcg DAILY 09/14/21 Gabapentin [Neurontin] 300 mg PO QID 02/14/16 Atorvastatin [Lipitor] 20 mg DAILY 09/14/21 Levothyroxine [Synthroid] 25 mcg DAILY 09/14/21 Allergies/Adverse Reactions: Allergies Allergy/AdvReac Type Severity Reaction Status Date / Time No Known Drug Allergies Allergy Verified 09/15/21 07:27 Anes History & Medical History - Anesthetic History Anesthesia Complications: reports: No previous complications Family history of Anesthesia Complications: Denies Family history of Malignant Hyperthermia: Denies - Medical History Cardiovascular: reports: High cholesterol Pulmonary: reports: Sleep apnea, CPAP use Gastrointestinal: reports: Colon polyps Urinary: reports: Other Musculoskeletal: reports: Osteoarthritis Endocrine/Autoimmune: reports: HyPOthyroidism Skin: reports: Other Smoking Status: Never smoker - Surgical History General: reports: Colonoscopy, Other Eyes Ears Nose Throat (EENT): reports: Cataracts Urologic: reports: Prostatic surgery Dermatologic: reports: Skin cancer surgery Exam General: Alert, Oriented x3, Cooperative, No acute distress Dental: WNL Mouth Openin Fingerbreadth Neck Mobility: Normal Mallampati classification: II Plan Anesthesia Type: General, Total IV Consent for Procedure(s) Verified and Reviewed: Yes Code Status: Attempt Resuscitation ASA classification: 2-Mild systemic disease Is this case an emergency?: No
[2021-09-15] MEDS ORDERED: PROPOFOL 200 MG/20 ML VIAL IVP ONE (08:21)
--- NOTE | 2021-09-15 08:24 | HISTORY & PHYSICAL EXAMINATION ---
Chief Complaint - Chief Complaint Chief Complaint: here for colon cancer surveillance History of Present Illness - History Obtained From Records Reviewed: yes History obtained from: pt Exam Limitations: none - History of Present Illness HPI Comment/Other: 4 polyps removed last colonoscopy in 2016. no problems History - Past Medical History Cardiovascular: reports: High cholesterol Respiratory: reports: Sleep apnea, CPAP use Endocrine/Autoimmune: reports: HyPOthyroidism GI: reports: Colon polyps : reports: Other HEENT: reports: None Psych: reports: None Musculoskeletal: reports: Osteoarthritis Derm: reports: Other MRSA Hx?: No - Past Surgical History General: reports: Colonoscopy, Other HEENT: reports: Cataracts Derm: reports: Skin cancer surgery - POLST Patient has POLST: No Meds/Allgy - Home Medications Home Medications: Ambulatory Orders Medication Instructions Recorded Confirmed Gabapentin [Neurontin] 300 mg PO QID 02/14/16 09/15/21 Atorvastatin [Lipitor] 20 mg DAILY 09/14/21 09/14/21 Levothyroxine [Synthroid] 25 mcg DAILY 09/14/21 09/15/21 - Allergies Allergies/Adverse Reactions: Allergies Allergy/AdvReac Type Severity Reaction Status Date / Time No Known Drug Allergies Allergy Verified 09/15/21 07:27 Review of Systems - Other Findings Other Findings: 10 pt ros as above otherwise unremarkable Exam - Vital Signs Reviewed Vital Signs: Yes Vital Signs: Vital Signs x48h Temp Pulse Resp BP Pulse Ox 09/15/21 07:05 37.1 C 68 16 143/75 H 94 - Physical Exam General Appearance: positive: No acute distress, Alert Eyes Bilateral: positive: PERRL, EOMI ENT: positive: No signs of dehydration Neck: positive: No JVD, Trachea midline Respiratory: positive: No respiratory distress, Breath sounds nml Cardiovascular: positive: Regular rate & rhythm Abdomen: positive: Non-tender, No distention Neurologic/Psychiatric: positive: Oriented x3 Conclusion/Plan - Problem List (1) History of adenomatous polyp of colon Conclusion/Plan: plan colonoscopy. parq held and consent obtained - Lab Results Lab results reviewed: Yes
[2021-09-15 09:33] VITALS: BP 110/88
--- NOTE | 2021-09-15 09:38 | ANESTHESIA POST OP EVALUATION ---
Anesthesia Post Eval - Post Anesthesia Eval Vitals: Last Vital Signs Temp 37.1 C 09/15/21 09:26 Pulse 65 09/15/21 09:32 Resp 17 09/15/21 09:32 BP 110/88 H 09/15/21 09:32 Pulse Ox 97 09/15/21 09:32 CV Function Including HR & BP: Stable Pain Control: Satisfactory Nausea & Vomiting: Negative Mental Status: Baseline Respiratory Status: Airway Patent Hydration Status: Satisfactory Anesthesia Complications: None
== END 2021-09-15 07:00 | disposition home or self-care (01) ==
LOC: SDS 06:59
PROVIDERS: ATTEND Surgery
PROC: 0DBP8ZZ Excision of Rectum, Via Natural or Artificial Opening Endoscopic (ICD-10-PCS; 2021-09-15)
PROC: 0DBM8ZZ Excision of Descending Colon, Via Natural or Artificial Opening Endoscopic (ICD-10-PCS; 2021-09-15)
PROC: 0DBH8ZZ Excision of Cecum, Via Natural or Artificial Opening Endoscopic (ICD-10-PCS; 2021-09-15)
PROC: 0DBH8ZZ Excision of Cecum, Via Natural or Artificial Opening Endoscopic (ICD-10-PCS; 2021-09-15)
PROC: 0DBK8ZZ Excision of Ascending Colon, Via Natural or Artificial Opening Endoscopic (ICD-10-PCS; principal; 2021-09-15 08:30)
DX: Z12.11 Encounter for screening for malignant neoplasm of colon (principal); D12.2 Benign neoplasm of ascending colon; D12.0 Benign neoplasm of cecum; D12.4 Benign neoplasm of descending colon; K62.1 Rectal polyp; K57.30 Diverticulosis of large intestine without perforation or abscess without bleeding; E66.9 Obesity, unspecified; Z68.32 Body mass index [BMI] 32.0-32.9, adult; G47.33 Obstructive sleep apnea (adult) (pediatric)
CPT/HCPCS: 45380; 45385; J7120

== ENCOUNTER 2022-01-16 11:18 | Outpatient (CLI) | payer MEDICARE ==
[2022-01-16 11:59] VITALS: BP 142/74
--- NOTE | 2022-01-16 11:59 | SLEEP CARE CONSULTATION ---
Information from patient questionnaire entered by Johnie Reyes. I have reviewed and concur with the information entered by Johnie Reyes. This document represents the service I personally performed and the decisions made by me, Cristal Fitzgerald ARNP. History of Present Illness Service Date and Time: 01/16/2022 1118 Previous diagnosis: Moderate, Obstructive Sleep Apnea-Hypopnea Syndrome AHI: 22.3 Reason for follow up: annual (LAST SEEN 06/19) Equipment type: CPAP (RESMED) Equipment obtained from: [employer] (getting supplies as needed) Mask style: Full face Backup mask available: Yes (old mask) Last cushion change: last week Prior sleep studies: Yes Year and Where: 2010 [facility] additional information: INKA TONG was diagnosed to have moderate, AHI 22.3, obstructive sleep apnea-hypopnea syndrome and returned today for CPAP therapy annual follow-up. Sleep Study - Results Prior sleep studies: Yes Year and Where: 2010 [facility] CPAP Compliance Data - Data Reviewed with Patient Average duration of nightly device use: 8 hours o minutes Compliance rate %: 100 (180/180 days used) Current pressure setting (cmH2O): 7-9 Average residual AHI: 2.7 Average large leak: 0.1 Subjective Patient concerns: reports: air blowing in eyes (little bit), dry mouth, nose, throat. denies: aerophagia, mask discomfort, mask leak noise, condensation in mask/hose, nasal congestion, epistaxis Observed to snore while using device: Yes (occasional) Current pressure setting perceived as: comfortable On therapy, patient: reports: sleeping better, awakening more refreshed, being more awake and alert during the day, more rested overall. denies: drowsiness while driving Initial [place] Sleepiness Scale score: 5 (in 2013) Current [place] Sleepiness Scale score: 13 (01/16/22) Allergies and Home Medications Drug allergies reviewed: Yes (NKDA) Home medication list reviewed: Yes Allergy and home medication list: Allergies No Known Drug Allergies Allergy (Verified 09/15/21 07:27) Review of Systems Review of systems same as previous: Yes (No changes) Physical Exam Vital signs obtained and entered by: CYNTHIA NAQVI Blood Pressure: 142/74 (left arm ) Cuff size: regular Heart Rate: 65 O2 Saturation: 96 Height: 6 ft 3 in Weight: 263 lb Body Mass Index: 32.8 BMI Classification: Obese Impression and Plan 1. Obstructive Sleep Apnea-Hypopnea Syndrome, moderate, with excellent treatment compliance and good apnea control. On CPAP therapy, the patient has better sleep quality and is more rested overall. Patient has significant improvement of his sleep apnea and is satisfied with current CPAP therapy. His tells him he will snore occasionally but he thinks she is just "sensitive ". His AHI is controlled at 2.7. I will not make an adjustment to his pressure today. Patient to let me know if the snoring becomes more consistent, nightly. Patient's apnea severity and rationale for treatment to reduce apnea, improve sleep quality and reduce cardiovascular and cerebrovascular events was reviewed. I will write a prescription to update his supplies today. 2. Obesity, unspecified. Currently patients BMI is 32.8. Obesity increases the risk of apnea, CPAP pressure requirements and overall health risks especially cardiovascular and diabetes. Thus patient is advised to lose weight. Weight loss can be done with reducing portion size, reducing refined foods and balancing content with vegetables, fruit and whole grain foods. In addition, patient encouraged to get regular exercise. * Continue auto CPAP pressure at 7-9 cmH2O * Update supplies * Notify me if snoring with mask or feeling that the pressure is too much or too little * Attempt to lose weight * Call this office if any problems using CPAP * Return for follow up in 1 year, or sooner if concerns arise Counseling Topics: Spare mask, Weight loss health impact Visit Type: In Office Time Spent with Patient (minutes): 20 Provider Statement: I spent 100% of the Face to Face Visit with the patient with greater than 50% spent counseling the patient and coordination of care.
== END 2022-01-16 11:19 | disposition home or self-care (01) ==
LOC: SC 11:18
PROVIDERS: ATTEND Nurse Practitioner Family
DX: G47.33 Obstructive sleep apnea (adult) (pediatric) (principal); E66.9 Obesity, unspecified; Z68.32 Body mass index [BMI] 32.0-32.9, adult
CPT/HCPCS: 99213; G0463; 99212

== ENCOUNTER 2022-05-15 08:24 | Outpatient (CLI) | payer MEDICARE ==
[2022-05-15 08:49] LABS: CALCIUM 8.8 mg/dL (8.5-10.3); POTASSIUM 3.9 mmol/L (3.5-5.0)
[2022-05-15 09:08] LABS: THYROID STIMULATING HORMONE 6.64 uIU/mL (0.34-5.60)
[2022-05-15 09:41] LABS: FREE T4 (FREE THYROXINE) 0.72 ng/dL (0.58-1.64)
[2022-05-15 12:32] LABS: ESTIMATED AVERAGE GLUCOSE 128 mg/dL (70-100); HEMOGLOBIN A1c% 6.1 % (4.27-6.07)
== END 2022-05-15 08:25 | disposition home or self-care (01) ==
LOC: LAB 08:24
PROVIDERS: ATTEND Family Medicine
DX: E03.9 Hypothyroidism, unspecified (principal); R73.9 Hyperglycemia, unspecified
CPT/HCPCS: 36415; 80048; 83036; 84439; 84443

== ENCOUNTER 2022-08-15 12:47 | Outpatient (CLI) | payer MEDICARE ==
[2022-08-15 13:19] VITALS: BP 148/86
--- NOTE | 2022-08-15 13:19 | SLEEP CARE CONSULTATION ---
Information from patient questionnaire entered by Mio Caballero. I have reviewed and concur with the information entered by Mio Caballero. This document represents the service I personally performed and the decisions made by me, Cristal Fitzgerald ARNP. History of Present Illness Service Date and Time: 08/15/2022 1247 Previous diagnosis: Moderate, Obstructive Sleep Apnea-Hypopnea Syndrome AHI: 22.3 Reason for follow up: six month, other (NEW CPAP OLD ONE IS 7YRS OLD) Equipment type: CPAP (RESMED Airsense 10, s/u 07/2015; SD CARD NEEDED FOR DOWNLOAD AND PRESSURE CHANGES) Equipment obtained from: [employer] (getting supplies as needed) Mask style: Full face (hybrid) Backup mask available: Yes (old mask) Last cushion change: 3 months Prior sleep studies: Yes Year and Where: 2010 [facility] additional information: NIKA TONG was diagnosed to have moderate, AHI 22.3, obstructive sleep apnea-hypopnea syndrome and returned today for CPAP therapy six month follow-up. Sleep Study - Results Prior sleep studies: Yes Year and Where: 2010 [facility] CPAP Compliance Data - Data Reviewed with Patient Average duration of nightly device use: 7 hours 33 minutes Compliance rate %: 99 (89/90 days used) Current pressure setting (cmH2O): 7-9 Average residual AHI: 3.0 Central apnea: 0.3 Obstructive apnea: 0.6 Hypopnea: 2.1 Average large leak: 0.1 lpm Compliance data discussion: Machine will occasionally turn on by itself during the day and runs. Subjective Patient concerns: reports: condensation in mask/hose (not every night), dry mouth, nose, throat (dry mouth, uses chinstrap; mild, water helps). denies: aerophagia, mask discomfort, air blowing in eyes, mask leak noise, nasal congestion, epistaxis Observed to snore while using device: No Current pressure setting perceived as: comfortable On therapy, patient: reports: sleeping better, awakening more refreshed, being more awake and alert during the day, more rested overall. denies: drowsiness while driving Initial [place] Sleepiness Scale score: 5 (in 2013) Current [place] Sleepiness Scale score: 10 (08/15/22) Allergies and Home Medications Known drug allergies: No Drug allergies reviewed: Yes Home medication list reviewed: Yes (no changes) Allergy and home medication list: Allergies No Known Drug Allergies Allergy Review of Systems Review of systems same as previous: Yes (no changes) Physical Exam Vital signs obtained and entered by: MIO Trevino MA Blood Pressure: 148/86 (LEFT ARM) Cuff size: regular Heart Rate: 60 O2 Saturation: 98 Height: 6 ft 3 in Weight: 268 lb 6.4 oz Weight change since last visit: 5 lb gain Body Mass Index: 33.5 BMI Classification: Obese Impression and Plan 1. Obstructive Sleep Apnea-Hypopnea Syndrome, moderate, with good treatment compliance and good apnea control. On CPAP therapy, the patient has better sleep quality and is more rested overall. Patient has significant improvement of their sleep apnea and is satisfied with current CPAP therapy. Patient does get some oral dryness with using his CPAP but states it is not bothersome and a little drink water takes care of it. His CPAP machine has been giving him a message that it has "reached the limit of its motor life". The patients CPAP is over 5 years old and of reasonable use. Thus, the CPAP will be updated. The new CPAPs also have a better humidity system which could assist control of patients dryness symptoms. A DWO prescription will be made. Compliance guidelines for new device and follow up discussed. Patient's apnea severity and rationale for treatment to reduce apnea, improve sleep quality and reduce cardiovascular and cerebrovascular events was reviewed. 2. Obesity, unspecified. Currently patients BMI is 33.5. Obesity increases the risk of apnea, CPAP pressure requirements and overall health risks especially cardiovascular and diabetes. Thus patient is advised to lose weight. * Continue autoCPAP pressure at 7-9 cmH2O * Update machine * Update device * Notify me if snoring with mask or feeling that the pressure is too much or too little * Attempt to lose weight * Call this office if any problems using CPAP * Return for follow up one month after obtaining new device, or sooner if concerns arise Counseling Topics: Spare mask, Weight loss health impact Visit Type: In Office Time Spent with Patient (minutes): 21 Provider Statement: I spent 100% of the Face to Face Visit with the patient with greater than 50% spent counseling the patient and coordination of care.
== END 2022-08-15 12:48 | disposition home or self-care (01) ==
LOC: SC 12:47
PROVIDERS: ATTEND Nurse Practitioner Family
DX: G47.33 Obstructive sleep apnea (adult) (pediatric) (principal); E66.9 Obesity, unspecified; Z68.33 Body mass index [BMI] 33.0-33.9, adult
CPT/HCPCS: 99213; G0463; 99212

== ENCOUNTER 2022-12-12 08:04 | Outpatient (CLI) | payer MEDICARE ==
[2022-12-12 08:21] LABS: BASOPHILS # (AUTO) 0.1 10^3/uL (0.0-0.1); BASOPHILS % (AUTO) 0.9 %; EOSINOPHILS # (AUTO) 0.1 10^3/uL (0.0-0.7); EOSINOPHILS % (AUTO) 2.2 %; HCT - HEMATOCRIT 42.4 % (42.0-52.0); LYMPHOCYTES # (AUTO) 2.3 10^3/uL (1.5-3.5); LYMPHOCYTES % (AUTO) 34.9 %; MEAN CORPUSCULAR VOLUME 96.8 fL (80.0-94.0); MEAN PLATELET VOLUME 10.3 fL (7.4-11.4); MONOCYTES # (AUTO) 0.4 10^3/uL (0.0-1.0); MONOCYTES % (AUTO) 6.5 %; NEUTROPHILS # (AUTO) 3.6 10^3/uL (1.5-6.6); NEUTROPHILS % (AUTO) 55.3 %; PLT - PLATELET COUNT 190 10^3/uL (130-450); RED BLOOD COUNT 4.38 10^6/uL (4.70-6.10); RED CELL DISTRIBUTION WIDTH 12.9 % (12.0-15.0); WHITE BLOOD COUNT 6.5 x10^3/uL (4.8-10.8)
[2022-12-12 08:49] LABS: ALBUMIN 4.1 g/dL (3.2-5.5); ALKALINE PHOSPHATASE 67 IU/L (42-121); ALT ALANINE AMINOTRANSFERASE 48 IU/L (10-60); AST ASPARTATE AMINOTRANSFERASE 48 IU/L (10-42); BILIRUBIN,TOTAL 2.2 mg/dL (0.2-1.0); BUN - BLOOD UREA NITROGEN 11 mg/dL (6-20); CALCIUM 9.4 mg/dL (8.5-10.3); CARBON DIOXIDE - CO2 26 mmol/L (21-32); CHLORIDE 103 mmol/L (101-111); CHOL/HDL RATIO 3.3 (<5.0); CHOLESTEROL 114 mg/dL; CREATININE 0.8 mg/dL (0.6-1.3); GFR - MDRD 94 (>89); GLUCOSE 129 mg/dL (74-104); HDL CHOLESTEROL 35 mg/dL; LDL CHOLESTEROL,CALCULATED 51 mg/dL; LDL/HDL RATIO 1.5 (<3.6); POTASSIUM 3.8 mmol/L (3.5-4.5); SODIUM 134 mmol/L (135-145); TOTAL PROTEIN 8.3 g/dL (6.4-8.9); TRIGLYCERIDES 139 mg/dL (48-352); VLDL CHOLESTEROL 28 mg/dL
[2022-12-12 08:56] LABS: THYROID STIMULATING HORMONE 5.84 uIU/mL (0.34-5.60)
[2022-12-12 14:22] LABS: ESTIMATED AVERAGE GLUCOSE 128 mg/dL (70-100); HEMOGLOBIN A1c% 6.1 % (4.27-6.07)
== END 2022-12-12 08:05 | disposition home or self-care (01) ==
LOC: LAB 08:04
PROVIDERS: ATTEND Family Medicine
DX: E03.9 Hypothyroidism, unspecified (principal); R73.9 Hyperglycemia, unspecified; R03.0 Elevated blood-pressure reading, without diagnosis of hypertension; E78.2 Mixed hyperlipidemia; C61 Malignant neoplasm of prostate
CPT/HCPCS: 36415; 80053; 80061; 83036; 83721; 84153; 84439; 84443; 85025

== ENCOUNTER 2023-11-24 16:57 | Emergency (ER) | payer MEDICARE ==
[2023-11-24 17:34] VITALS: BP 169/84; O2SAT 97
--- NOTE | 2023-11-24 17:53 | ED Physician Documentation ---
PD HPI SKIN - Stated complaint Stated Complaint: DOG BITE - Chief complaint Chief Complaint: Wound - History obtained from History obtained from: Patient - Additional information Additional information: This is a very nice 78-year-old gentleman who presents with a left hand dog bite. The patient states that he was breaking up an altercation between his dog and his nieces dog when his niece's dog accidentally bit him on the hand. He believes the dog is up-to-date on vaccines. The patient himself though is not sure when he had his last tetanus. He denies any other injuries today. PD PAST MEDICAL HISTORY - Past Medical History Past Medical History: Yes Cardiovascular: High cholesterol Respiratory: Sleep apnea, CPAP use Endocrine/Autoimmune: HyPOthyroidism GI: Colon polyps : Other HEENT: None Psych: None Musculoskeletal: Osteoarthritis Derm: Other - Past Surgical History Past Surgical History: No General: Colonoscopy, Other HEENT: Cataracts Derm: Skin cancer surgery - Present Medications Home Medications: Ambulatory Orders Medication Instructions Recorded Confirmed Gabapentin [Neurontin] 300 mg PO QID 02/14/16 08/15/22 Atorvastatin [Lipitor] 20 mg DAILY 09/14/21 08/15/22 Levothyroxine [Synthroid] 25 mcg DAILY 09/14/21 08/15/22 Amox/Clav 875/125 [Augmentin] 1 each PO Q12H #20 tablet 11/24/23 - Allergies Allergies/Adverse Reactions: Allergies Allergy/AdvReac Type Severity Reaction Status Date / Time No Known Drug Allergies Allergy Verified 11/24/23 17:20 - Social History Does the pt smoke?: No Smoking Status: Never smoker Does the pt drink ETOH?: No Does the pt have substance abuse?: No - Immunizations Immunizations are current?: Yes - POLST Patient has POLST: No PD ED PE NORMAL - Vitals Vital signs reviewed: Yes - General General: Alert and oriented X 3, No acute distress, Well developed/nourished - Derm Derm: Normal color, Warm and dry, Other (4 cm laceration on the dorsum of the left hand and 4 other small 1 to 2 mm puncture rios on the left hand. Not actively bleeding.) - Extremities Extremities: No deformity, No tenderness to palpate, Normal ROM s pain, Other (Dog bite to the dorsum of the left hand, has full range of motion of the left wrist and fingers, normal sensation.) Results - Vitals Vitals: Vital Signs - 24 hr 11/24/23 17:16 Temperature 37.4 C Heart Rate 72 Respiratory 20 Rate Blood Pressure 169/84 H O2 Saturation 97 Oxygen O2 Source Room air Procedures - Laceration (location) Hand left Dorsal Length in cm: 4 Wound type: Linear Neurovascular status: Sensory intact, Motor intact, Vascular intact Tendon involvement: Tendon intact Anesthesia: Lidocaine 1% with epi Wound preparation: Hibiclens, Irrigated copiously NS Skin layer closure: Nylon, Size #-0 - enter number (4), Sutures - enter # (4) Other: Patient tolerated well, Dressing applied, Tetanus booster given PD Medical Decision Making - ED course Complexity details: d/w patient ED course: 78-year-old male presented after dog bite to the left hand as described in HPI. He is well-appearing here on physical exam, and in no acute distress. He has a 4 cm laceration across the dorsum of the left hand with a number of small pun cture bite rios on the left hand. Wound was cleaned thoroughly by the RN and after discussion with patient and verbal consent, it was closed loosely with 4 #4 point 0 nylon sutures. I discussed with patient that I closed it loosely to allow for any drainage in the event of infection. I recommended keeping it dry tonight and then he can wash gently with soap and water and apply bacitracin ointment twice daily. I will start him on Augmentin and he was cautioned on return precautions. He was given updated Tdap today. Departure - Departure Disposition: 01 Home, Self Care Clinical Impression: Animal bite with open wound Condition: Good Instructions: ED Bite Animal General Prescriptions: Amox/Clav 875/125 [Augmentin] 1 each PO Q12H #20 tablet Comments: Pasquale, Happy Birthday! I am sorry that you had to come to the ER for dog bite on your birthday but hopefully the rest of the weekend was wonderful. Please keep the dog bite wound dry today and then tomorrow you can wash gently with soap and water and apply antibacterial ointment to the wounds on your hand. The sutures need to come out in 10 to 14 days and this can be done at urgent care or your primary doctor or you can return to the ER. I would like you to start on the antibiotics and take for the duration of the prescription as this can reduce the chance of developing an infection. If you do have any signs of infection such as increased redness, swelling, increased pain, or new concerns, please follow-up. We did give you an updated Tdap today and this is good for 10 years. Your prescription was sent to [facility] in [place]. Forms: PCP List
[2023-11-24] MEDS: TETANUS/DIPHTHERIA/PERTUSSIS 0.5 ML SYRINGE IM ONE (17:55)
== END 2023-11-24 18:05 | disposition home or self-care (01) ==
LOC: ED 16:57
DX: S61.452A Open bite of left hand, initial encounter (principal); W54.0XXA Bitten by dog, initial encounter; Z23 Encounter for immunization; E78.00 Pure hypercholesterolemia, unspecified; E03.9 Hypothyroidism, unspecified; Z79.899 Other long term (current) drug therapy
CPT/HCPCS: 12002; 90471; 99283